=== PATIENT | male | born 1975 | race African-American/Black ===

== ENCOUNTER 2023-03-29 07:12 | Emergency (ER) | payer OTHER ==
[~2023-03-29] VITALS: Ht 177.8 cm; Wt 77.0 kg
[2023-03-29 07:21] VITALS: O2SAT 98
[2023-03-29] MEDS ORDERED: ONDANSETRON HCL 4MG/2ML INJ IV STA (07:29)
[2023-03-29] MEDS ORDERED: KETOROLAC 30MG/ML VIAL IV STA (07:29)
[2023-03-29] MEDS ORDERED: SODIUM CHLORIDE 0.9% 1,000 ML IV ONE (07:30)
[2023-03-29 08:54] LABS: BASOPHILS % 0.3 % (0.0-2.0); DIFFERENTIAL COMMENT 0; EOSINOPHILS % 3.7 % (0.0-5.0); HEMATOCRIT. 43.7 % (42.0-52.0); HEMOGLOBIN. 14.5 g/dL (14.0-18.0); LYMPHOCYTES % 20.7 % (20.0-50.0); MEAN CORPUSCULAR HEMOGLOBIN 30.5 pg (28.0-32.0); MEAN CORPUSCULAR HGB CONC 33.1 g/dL (31.0-37.0); MEAN CORPUSCULAR VOLUME 92.3 fL (80.0-94.0); MEAN PLATELET VOLUME 9.6 fl (7.4-10.4); MONOCYTES % 5.1 % (2.0-8.0); NEUTROPHILS % 70.2 % (40.0-76.0); PLATELET 186 x1000/uL (130-400); RED BLOOD CELL COUNT 4.74 mill/uL (4.7-6.1); RED CELL DISTRIBUTION WIDTH 13.3 % (11.6-14.6); WHITE BLOOD COUNT 7.2 x1000/uL (4.5-11.0)
[2023-03-29 08:56] LABS: INR 1.2; PROTHROMBIN TIME 12.4 sec (9.6-11.0)
[2023-03-29 09:03] LABS: ALANINE AMINOTRANSFERASE 15 IU/L (10-49); ASPARTATE AMINOTRANSFERASE 21 IU/L (<34); BILIRUBIN TOTAL 0.7 mg/dL (0.1-1.0); CALCIUM 8.8 mg/dL (8.7-10.4); CARBON DIOXIDE 22 mEq/L (21-32); CHLORIDE 109 mEq/L (98-107); CREATININE 0.9 mg/dL (0.6-1.3); GLUCOSE 86 mg/dL (70-105); POTASSIUM 3.7 mEq/L (3.5-5.1); PROTEIN TOTAL 7.2 g/dL (6.0-8.3); SODIUM 141 mEq/L (136-145); UREA NITROGEN BLOOD 9 mg/dL (9-23)
[2023-03-29 09:05] LABS: TROPONIN I HIGH SENSITIVITY < 4 ng/L (3.0-53)
[2023-03-29 09:06] LABS: ETHANOL BLOOD < 10 mg/dL (<10)
[2023-03-29 09:43] LABS: CLARITY URINE CLEAR (CLEAR); COLOR URINE YELLOW (YELLOW); GLUCOSE URINE NEGATIVE (NEGATIVE); KETONES URINE 1+ (NEGATIVE); LEUKOCYTE ESTERASE URINE NEGATIVE (NEGATIVE); NITRITE URINE NEGATIVE (NEGATIVE); OCCULT BLOOD URINE NEGATIVE (NEGATIVE); PH URINE 5.5 (4.5-8.0); PROTEIN URINE NEGATIVE (NEGATIVE); SPECIFIC GRAVITY URINE 1.021 (1.005-1.030)
[2023-03-29 10:41] LABS: *AMPHETAMINES SCREEN URINE NEGATIVE (NEGATIVE); *BARBITURATES SCREEN URINE NEGATIVE (NEGATIVE); *BENZODIAZEPINES SCREEN URINE PRESUMPTIVE POSITIVE (NEGATIVE); *COCAINE SCREEN URINE NEGATIVE (NEGATIVE); CANNABINOID URINE SCREEN PRESUMPTIVE POSITIVE (NEGATIVE); ECSTASY MDMA SCREEN URINE NEGATIVE (NEGATIVE); METHADONE URINE SCREEN Neg (NEGATIVE); OPIATES URINE SCREEN NEGATIVE (NEGATIVE); PHENCYCLIDINE URINE SCREEN NEGATIVE (NEGATIVE)
[2023-03-29 11:58] LABS: TROPONIN I HIGH SENSITIVITY < 4 ng/L (3.0-53)
[2023-03-29 12:30] VITALS: BP 122/79; PULSE 68; RESP 16; TEMP 97.5
== END 2023-03-29 14:01 | disposition home or self-care (01) ==
LOC: ER 07:12
DX: R11.2 Nausea with vomiting, unspecified (principal); R00.2 Palpitations
CPT/HCPCS: 80053; 80305; 81003; 80320; 83880; 83690; 85025; 85610; 84484; 36415; 71045; 93005; 96361; 96374; 96375; 99285; J1885; J2405; J7030; Z7610; G0480

== ENCOUNTER 2023-07-15 01:10 | Emergency (ER) | payer OTHER ==
[~2023-07-15] VITALS: Ht 180.3 cm; Wt 75.0 kg
[2023-07-15 01:23] VITALS: BP 128/69; PULSE 58; RESP 16; TEMP 97.9; O2SAT 97
[2023-07-15] MEDS ORDERED: FAMO-135 MT (17:28)
== END 2023-07-15 05:58 | disposition home or self-care (01) ==
LOC: ER 01:10
DX: R07.9 Chest pain, unspecified (principal); Z88.8 Allergy status to other drugs, medicaments and biological substances
CPT/HCPCS: 71045; 93005; 99283

== ENCOUNTER 2023-07-15 13:16 | Emergency (ER) | payer OTHER ==
[~2023-07-15] VITALS: Ht 185.4 cm; Wt 79.0 kg
[2023-07-15 13:18] VITALS: BP 147/87; PULSE 67; RESP 18; TEMP 98.7; O2SAT 100
[2023-07-15] MEDS: ONDANSETRON 4MG ODT PO STA (14:30)
[2023-07-15 15:46] LABS: BASOPHILS % 0.3 % (0.0-2.0); EOSINOPHILS % 1.8 % (0.0-5.0); HEMATOCRIT. 44.5 % (42.0-52.0); HEMOGLOBIN. 15.2 g/dL (14.0-18.0); LYMPHOCYTES % 20.1 % (20.0-50.0); MEAN CORPUSCULAR HEMOGLOBIN 31.5 pg (28.0-32.0); MEAN CORPUSCULAR HGB CONC 34.1 g/dL (31.0-37.0); MEAN CORPUSCULAR VOLUME 92.2 fL (80.0-94.0); MEAN PLATELET VOLUME 9.6 fl (7.4-10.4); MONOCYTES % 4.2 % (2.0-8.0); NEUTROPHILS % 73.6 % (40.0-76.0); PLATELET 217 x1000/uL (130-400); RED BLOOD CELL COUNT 4.83 mill/uL (4.7-6.1); RED CELL DISTRIBUTION WIDTH 13.6 % (11.6-14.6); WHITE BLOOD COUNT 9.3 x1000/uL (4.5-11.0)
[2023-07-15 15:54] LABS: CHLORIDE 108 mEq/L (98-107); POTASSIUM 4.7 mEq/L (3.5-5.1); SODIUM 139 mEq/L (136-145)
[2023-07-15 15:55] LABS: CARBON DIOXIDE 24 mEq/L (21-32)
[2023-07-15 15:56] LABS: CALCIUM 10.3 mg/dL (8.7-10.4)
[2023-07-15 16:00] LABS: CREATININE 1.1 mg/dL (0.6-1.3); GLUCOSE 68 mg/dL (70-105)
[2023-07-15 16:01] LABS: UREA NITROGEN BLOOD 16 mg/dL (9-23)
[2023-07-15 16:02] LABS: ALANINE AMINOTRANSFERASE 28 IU/L (10-49); ALBUMIN 4.9 g/dL (3.2-4.8); ASPARTATE AMINOTRANSFERASE 49 IU/L (<34)
[2023-07-15 16:03] LABS: BILIRUBIN TOTAL 0.8 mg/dL (0.1-1.0); PROTEIN TOTAL 7.9 g/dL (6.0-8.3)
[2023-07-15] MEDS: KETOROLAC 15MG/ML VIAL IM ONE (16:52)
[2023-07-15] MEDS ORDERED: FAMO-135 MT (17:28)
== END 2023-07-15 19:04 | disposition home or self-care (01) ==
LOC: ER 14:01
DX: R10.11 Right upper quadrant pain (principal)
CPT/HCPCS: 99285; 76700; 80053; 83690; 85025; 36415; 96372; Q0162; J1885

== ENCOUNTER 2023-10-09 00:51 | Emergency (ER) | payer OTHER ==
[~2023-10-09] VITALS: Ht 170.2 cm; Wt 79.0 kg
[~2023-10-09 00:51] MED LIST: FAMO-135 MT
[2023-10-09 01:00] VITALS: BP 157/83; PULSE 79; RESP 16; TEMP 98.4; O2SAT 95
[2023-10-09 02:29] LABS: BASOPHILS % 0.3 % (0.0-2.0); EOSINOPHILS % 0.3 % (0.0-5.0); HEMATOCRIT. 42.3 % (42.0-52.0); HEMOGLOBIN. 13.7 g/dL (14.0-18.0); LYMPHOCYTES % 15.1 % (20.0-50.0); MEAN CORPUSCULAR HEMOGLOBIN 30.3 pg (28.0-32.0); MEAN CORPUSCULAR HGB CONC 32.4 g/dL (31.0-37.0); MEAN CORPUSCULAR VOLUME 93.5 fL (80.0-94.0); MONOCYTES % 4.4 % (2.0-8.0); NEUTROPHILS % 79.9 % (40.0-76.0); RED BLOOD CELL COUNT 4.52 mill/uL (4.7-6.1); RED CELL DISTRIBUTION WIDTH 13.9 % (11.6-14.6); WHITE BLOOD COUNT 9.4 x1000/uL (4.5-11.0)
[2023-10-09 02:32] LABS: DIFFERENTIAL COMMENT 1
[2023-10-09] MEDS: KETOROLAC 30MG/ML VIAL IM STA (02:39)
[2023-10-09 03:40] LABS: CARBON DIOXIDE 21 mEq/L (21-32); CHLORIDE 110 mEq/L (98-107); SODIUM 141 mEq/L (136-145)
[2023-10-09 03:41] LABS: CALCIUM 9.4 mg/dL (8.7-10.4)
[2023-10-09 03:46] LABS: GLUCOSE 89 mg/dL (70-105); UREA NITROGEN BLOOD 10 mg/dL (9-23)
[2023-10-09 03:48] LABS: ALANINE AMINOTRANSFERASE 12 IU/L (10-49); ALBUMIN 4.5 g/dL (3.2-4.8); ASPARTATE AMINOTRANSFERASE 25 IU/L (<34); BILIRUBIN TOTAL 0.6 mg/dL (0.1-1.0); PROTEIN TOTAL 7.4 g/dL (6.0-8.3)
[2023-10-09 06:32] LABS: MEAN PLATELET VOLUME 9.4 fl (7.4-10.4); PLATELET 246 x1000/uL (130-400)
== END 2023-10-09 04:46 | disposition left against medical advice (07) ==
LOC: ER 00:51
DX: B34.9 Viral infection, unspecified (principal); R19.7 Diarrhea, unspecified; R10.9 Unspecified abdominal pain; I10 Essential (primary) hypertension; Z20.822 Contact with and (suspected) exposure to COVID-19
CPT/HCPCS: 99285; 74176; 71045; 87426; 80053; 83690; 85025; 87804 ×2; 36415; 96372; J1885